=== PATIENT | female | born 1945 | race Caucasian/White ===

== ENCOUNTER → 2024-11-16 | Day surgery (SDC) | payer OTHER ==
[2024-11-09 12:47] VITALS: BMI 26.4
[~2024-11-16] MED LIST: ACETAMINOPHEN 325 MG TABLET (FP) PO PRN; BACITRACIN/POLYMYXIN OPH OINT 3.5 GM TUBE ONE; BETAXOLOL HCL 0.25% OPHTHALMIC 10 ML DROPSBTL ONE; BSS (NA/CA/MG/K) BALANCED SALT SOLUTION OPHTH SOLN 15 ML BOTTLE ONE; CYCLOPENTOLATE HCL 1% OPHTH SOLN 2 ML BOTTLE ONE; EPI-SHUGARCAINE (EPINEPHRINE 0.025% & LIDOCAINE-PF 0.75%) 4ML ONE; EPINEPHrine/PF 1 MG/1 ML (1:1,000) AMPULE ONE; KETOROLAC TROMETHAMINE 0.5% EYE DROP 1 DROP DROPS ONE; MIDAZOLAM HCL 2 MG/2 ML SINGLE DOSE VIAL ONE; NEO/POLYMYX B SULF/DEXAMETH OPHTHALMIC 5ML BOTTLE ONE; OFLOXACIN 0.3% OPHTHALMIC SOLUTION 5 ML BOTTLE ONE; PHENYLEPHRINE 2.5% OPTHALMIC DROP 2ML BOTTLE ONE; POVIDONE-IODINE 5% OPHTHALMIC PREP 30 ML SOLUTION ONE; TETRACAINE 0.5% OPHTH SOLN 2 ML BOTTLE ONE; TROPICAMIDE 1% 3 ML EYE DROPS ONE
[2024-11-16] MEDS: CYCLOPENTOLATE HCL 1% OPHTH SOLN 2 ML BOTTLE OS SCH (08:20)
[2024-11-16] MEDS: TROPICAMIDE 1% OPHTH SOLN 15 ML BOTTLE OS SCH (08:20)
[2024-11-16] MEDS: KETOROLAC TROMETHAMINE 0.5% EYE DROP 1 DROP DROPS OS SCH (08:20)
[2024-11-16] MEDS: PHENYLEPHRINE 2.5% OPHTH SOLN 15 ML BOTTLE OS SCH (08:20)
[2024-11-16] MEDS: OFLOXACIN 0.3% OPHTHALMIC SOLUTION 5 ML BOTTLE OS SCH (08:20)
[2024-11-16 10:53] VITALS: PULSE 78; RESP 16; TEMP 97.2
[2024-11-16 11:17] VITALS: BP 128/68
== END | disposition home or self-care (01) ==
LOC: FASU 08:01
PROVIDERS: ATTEND Ophthalmology
PROC: 08RK3JZ Replacement of Left Lens with Synthetic Substitute, Percutaneous Approach (ICD-10-PCS; principal; 2024-11-16 10:00)
DX: H25.12 Age-related nuclear cataract, left eye (principal)
CPT/HCPCS: 66984; V2632